=== PATIENT | female | born 1980 | race Two or more races ===

== ENCOUNTER 2018-06-23 09:04 | Day surgery (SDC) | payer BC ==
[~2018-06-23] VITALS: Ht 175.3 cm; Wt 74.4 kg
[2018-06-23] MEDS ORDERED: IV RINGERS,LACTATED 1000ML 1,000 ML IV SCH ×2 (09:12→10:22)
[2018-06-23] MEDS ORDERED: fentaNYL PF VIAL 100 MCG/2 ML VIAL IV PRN ×4 (09:15→10:30)
[2018-06-23] MEDS ORDERED: LIDOCAINE 1% PF 2 ML VIAL. ID PRN ×2 (09:15→10:30)
[2018-06-23] MEDS ORDERED: MIDAZOLAM HCL/PF 2 MG/2 ML VIAL. IV PRN (09:15)
[2018-06-23 09:22] LABS: U PREG PATIENT NEGATIVE (NEG)
[2018-06-23] MEDS ORDERED: PROCHLORPERAZINE 10 MG/2 ML VIAL. IV PRN (10:30)
[2018-06-23] MEDS ORDERED: HYDROmorphone 2 MG/ML VIAL IV PRN (10:30)
[2018-06-23] MEDS ORDERED: ONDANSETRON PF 4 MG/2 ML VIAL. IV PRN (10:30)
[2018-06-23] MEDS ORDERED: MORPHINE SULFATE 2 MG/ML VIAL. IV PRN (10:30)
[2018-06-23] MEDS ORDERED: LIDOCAINE 1%/EPI 1:100,000 20 ML VIAL. ONE (12:31)
[2018-06-23] MEDS ORDERED: FERRIC SUBSULFATE 8 ML SOL.W.APPL TP ONE (12:31)
[2018-06-23] MEDS ORDERED: ceFAZolin 2GM PREMIX 2 GM/50 ML BAG IV ONE (13:00)
[2018-06-23] MEDS ORDERED: MIDAZOLAM HCL/PF 2 MG/2 ML VIAL. ONE (13:32)
[2018-06-23] MEDS ORDERED: fentaNYL PF VIAL 100 MCG/2 ML VIAL ONE (13:32)
[2018-06-23] MEDS ORDERED: LIDOCAINE 2% PF 5 ML VIAL. ONE (14:06)
[2018-06-23] MEDS ORDERED: ONDANSETRON PF 4 MG/2 ML VIAL. ONE (14:06)
[2018-06-23] MEDS ORDERED: PROPOFOL 20 ML IV ONE (14:06)
[2018-06-23] MEDS ORDERED: DEXAMETHASONE SOD PHOS 20 MG/5 ML VIAL. ONE (14:06)
[2018-06-23] MEDS ORDERED: SEVOFLURANE 31 TO 60 MINUTES. IH ONE (14:21)
--- NOTE | 2018-06-23 14:23 | PDOC ---
BRIEF OPERATIVE NOTE Date: Jun 23, 2018 Pre-Op Diagnosis RADHA 2 Post-Op Diagnosis Same Procedure Performed Cervical Cone Biopsy Surgeon Dr. Gong Anesthesia Type: General Blood Loss Less than 5 ml Specimens Obtained cervical cone bx Findings RADHA 2 Complications none Operative Note see dictation ABRAHAM GONG Jr, MD Jun 23, 2018 14:23
--- NOTE | 2018-06-23 14:24 | DISCH ---
DISCHARGE INSTRUCTIONS Condition on Discharge Condition on Discharge: Stable Activity After Discharge Activity Instructions for Disc: Activity as tolerated Lifting Instructions after Dis: No heavy lifting Driving Instructions after Dis: Do not drive today Diet after Discharge Diet after Discharge: Regular Contacting the DRHenry after DC Call your doctor for: Concerns you may have Follow-Up Follow up with: Dr. Gong in 2 weeks. ABRAHAM GONG Jr, MD Jun 23, 2018 14:24
--- NOTE | 2018-06-23 14:48 | OP ---
DATE OF SURGERY: PREOPERATIVE DIAGNOSIS: Cervical intraepithelial neoplasia 2. POSTOPERATIVE DIAGNOSIS: Cervical intraepithelial neoplasia 2. PROCEDURE: Cervical cone biopsy. SURGEON: Abraham Gong MD ANESTHESIA: LMA. ESTIMATED BLOOD LOSS: Less than 5 mL. COMPLICATIONS: None. FINDINGS: RADHA 2. SUMMARY: A 37-year-old female with RADHA 2 on colposcopic biopsy, requiring cervical cone biopsy. The patient was counseled on risks, benefits and expectations and voiced clear standing to proceed. DESCRIPTION OF PROCEDURE: The patient was taken to surgery suite and placed in dorsal lithotomy position. She was prepped with Betadine solution and draped in sterile fashion. After adequate anesthesia, weighted speculum and curved To placed vaginally. The anterior lip of the cervix grasped with a single-tooth tenaculum. 2-0 Vicryl sutures placed at 3 o'clock and 9 o'clock position for better stabilization of the cervix. The cervix was injected with 1% lidocaine with epinephrine in a circumferential manner. Cervical cone biopsy was then performed with cold knife scalpel, removing a portion of the anterior and posterior lip of the cervix, remaining cervix was cauterized with ball cautery and Monsel solution was also applied for better hemostasis. The weighted speculum and curved To were removed as well as the single-tooth tenaculum. The patient tolerated the procedure well and was taken to recovery room in stable condition. Sponge and needle counts correct x 3. ABRAHAM GONG MD DR: RUDY/kirsten JOB#: [id number] / [id number]
[2018-06-23 15:26] VITALS: BP 114/59
--- NOTE | 2018-06-27 09:06 | PATHOLOGY ---
[facility] Accession Number: [id number] . 01 Material submitted: . CERVICAL CONE BIOPSY . 01 Clinical history: . Cervical dysplasia. . 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 - Exocervical, endocervical and deep endocervical margins negative for RADHA. - Hypercornification of exocervix, focal. - Chronic cervicitis with focal squamous metaplasia. - Focal endocervical stromal fibrosis and hemosiderin laden macrophages consistent with previous biopsy site. LBQ/06/24/2018 . 02 Comment: There is no high grade dysplasia or evidence of malignancy. (JPM/db; 06/24/2018) . 02 Electronically signed: . Fran Mendoza MD, Pathologist NPI- [id number] . 01 Gross description: . Received fresh labeled "Odalys Gallardo, cervical cone biopsy stitch at 12:00" is an oriented cervical conization specimen measuring 2.8 x 2.0 cm and excised to a maximum depth of 1.5 cm. The ectocervix is mason-white and smooth with a centrally located slitlike os measuring 1.9 cm. The ectocervical margin is inked green and the deep margin is inked black. The specimen is radially sectioned and submitted entirely in cassettes as follows: A1 12:00 to 3:00 A2-A3 3:00 to 6:00 A4-A5 6:00 to 9:00 A6 9:00 to 12:00 ([facility] [place]; 06/23/2018) SYC/SYC . 02 Pathologist provided ICD-10: N87.0, N72 . 02 CPT . 722337 Specimen Comment: A courtesy copy of this report has been sent to Specimen Comment: [phone]. Specimen Comment: Report sent to Performed at: [address] [facility] [id number] MD Sylvester Abrams MD Phone: [phone] Performed at: [address] [facility] [address] [place] [id number] MD Fran Mendoza MD Phone: [phone]
== END 2018-06-23 16:09 | disposition home or self-care (01) ==
LOC: SURG 09:04
PROVIDERS: ATTEND Obstetrics & Gynecology
DX: N87.0 Mild cervical dysplasia (principal); N72 Inflammatory disease of cervix uteri; E78.5 Hyperlipidemia, unspecified; Z98.51 Tubal ligation status; Z83.3 Family history of diabetes mellitus; Z82.49 Family history of ischemic heart disease and other diseases of the circulatory system; Z83.49 Family history of other endocrine, nutritional and metabolic diseases
CPT/HCPCS: 57520; 81025; 88307; A7015; J0696; J1100; J2001; J2250; J2405; J2704; J3010; J3490